=== PATIENT | male | born 1995 | race American Indian/Alaskan Native ===

== ENCOUNTER 2019-05-20 13:27 | Emergency (ER) | payer BC ==
[2019-05-20 14:10] VITALS: BP 125/74
--- NOTE | 2019-05-20 15:22 | Emergency Department Report ---
Chief Complaint: Abdominal Pain Stated Complaint: STOMACH PAIN Time Seen by Provider: 05/20/19 15:17 - HPI History of Present Illness: 23 y/o male comes in for abd pain times five days. Reports worst 30 mins after eating. Has a history of IBS. Denies any N?V no vomiting blood no black or tarry stool. Reports that he has hundry pains since he has not eaten in 6 hours. Patient is asking to eat now. - Exam Vital Signs: Vital Signs 05/20/19 14:08 Temperature 98.6 F Pulse Rate 67 Respiratory 18 Rate Blood Pressure 125/74 O2 Sat by Pulse 100 Oximetry Physical Exam: axo times 3 NAD non toxic abd normal sounds, non distension no TTP Ambulatory without diff MSE screening note: Focused history and physical exam performed. Due to findings the following was ordered: 23 y/o male comes in for abd pain times five days. Reports worst 30 mins after eating. Has a history of IBS. Denies any N?V no vomiting blood no black or tarry stool. Reports that he has hundry pains since he has not eaten in 6 hours. Patient is asking to eat now. Recommends over the counter Pepcid and to follow up with PCP or analytics developer . ED Disposition for MSE Disposition: Z- MED SCREENING EXAM-LEFT Is pt being admited?: No Does the pt Need Aspirin: No Condition: Stable Additional Instructions: Recommends over the counter Pepcid and to follow up with PCP or analytics developer . Referrals: ALEXANDRU BRANHAM MD [Staff Physician] - 3-5 Days [facility] [Provider Group] - 3-5 Days
== END 2019-05-20 16:09 | disposition left against medical advice (07) ==
LOC: ED 13:27
DX: R10.9 Unspecified abdominal pain (principal); Z88.6 Allergy status to analgesic agent